=== PATIENT | female | born 1970 | race Caucasian/White ===

== ENCOUNTER → 2021-05-15 10:17 | Outpatient (CLI) | payer OTHER, SELFPAY ==
[2021-05-15 19:01] LABS: Alanine Aminotransferase 17 IU/L (<35); Albumin 4.3 g/dL (3.5-5.0); Albumin Globulin Ratio 1.6 (1.0-2.8); Alkaline Phosphatase 45 U/L (38-126); Aspartate Aminotransferase 27 IU/L (14-36); BUN Creatinine Ratio 12.6 (6-22); Bilirubin Total 0.5 mg/dL (0.2-1.3); Blood Urea Nitrogen 13 mg/dL (7-17); Calcium 9.7 mg/dL (8.4-10.2); Carbon Dioxide 28 mmol/L (22-32); Chloride 104 mmol/L (98-107); Cholesterol 203 mg/dL (140-199); Estimated Glomerular Filt Rate 56.7 mL/min (>60); Globulin 2.7 g/dL (1.7-4.1); Glucose 97 mg/dL (70-100); HDL Cholesterol 86 mg/dL (40-60); HEMOLYSIS 17 (0-50); LDL Cholesterol Calculated 107 mg/dL (<100); Potassium 4.4 mmol/L (3.4-5.1); Sodium 137 mmol/L (137-145); Triglycerides 49 mg/dL (35-150)
[2021-05-15 19:13] LABS: Add Manual Diff / Slide Review NO; Basophils Absolute Auto 0 /uL (0-100); Basophils Percent Auto 0.8 % (0-2); Eosinophils Absolute Auto 100 /uL (0-450); Eosinophils Percent Auto 3.4 % (2-4); Hematocrit 40.9 % (36-46); Hemoglobin 13.8 g/dL (12.0-16.0); Lymphocytes Absolute Auto 900 /uL (1100-4500); Mean Corpuscular HGB Conc 33.7 % (30-36); Mean Corpuscular Hemoglobin 28.8 PG (26-34); Mean Corpuscular Volume 85.3 fL (80-100); Monocytes Absolute Auto 400 /uL (0-900); Monocytes Percent Auto 12.4 % (3-14); Neutrophils Absolute Auto 1900 /uL (1500-7000); Neutrophils Percent Auto 56.4 % (50-75); Platelet Count 178 X10^3/uL (150-400); Red Blood Cell Count 4.79 X10^6/uL (4.0-5.2); Red Cell Distribution Width 13.3 % (11.6-14.8); White Blood Cell Count 3.3 X10^3/uL (4.5-11.0)
[2021-05-15 19:34] LABS: TSH w/ Reflex to FT4 1.42 uIU/mL (0.47-4.68)
== END ==
PROVIDERS: PCP Physician Assistant; Referring Provider Physician Assistant; Visit Provider Physician Assistant
DX: R53.83 Other fatigue (principal); Z13.220 Encounter for screening for lipoid disorders; Z83.49 Family history of other endocrine, nutritional and metabolic diseases
CPT/HCPCS: 80053; 80061; 84443; 85025

== ENCOUNTER → 2021-07-01 11:27 | Outpatient (CLI) | payer OTHER, SELFPAY ==
[2021-07-02 20:27] LABS: Add Manual Diff / Slide Review NO; Basophils Absolute Auto 0 /uL (0-100); Basophils Percent Auto 1.1 % (0-2); Eosinophils Absolute Auto 100 /uL (0-450); Eosinophils Percent Auto 1.7 % (2-4); Hemoglobin 13.7 g/dL (12.0-16.0); Lymphocytes Absolute Auto 1100 /uL (1100-4500); Lymphocytes Percent Auto 35.5 % (25-40); Mean Corpuscular HGB Conc 33.3 % (30-36); Mean Corpuscular Hemoglobin 28.6 PG (26-34); Mean Corpuscular Volume 85.8 fL (80-100); Monocytes Absolute Auto 300 /uL (0-900); Monocytes Percent Auto 11.1 % (3-14); Neutrophils Absolute Auto 1600 /uL (1500-7000); Neutrophils Percent Auto 50.6 % (50-75); Platelet Count 165 X10^3/uL (150-400); Red Blood Cell Count 4.78 X10^6/uL (4.0-5.2); Red Cell Distribution Width 14.3 % (11.6-14.8); White Blood Cell Count 3.1 X10^3/uL (4.5-11.0)
== END ==
PROVIDERS: PCP Physician Assistant; Referring Provider Physician Assistant; Visit Provider Physician Assistant
DX: D72.9 Disorder of white blood cells, unspecified (principal)
CPT/HCPCS: 85025

== ENCOUNTER → 2021-07-30 08:26 | Outpatient (CLI) | payer OTHER, SELFPAY ==
[2021-07-30 23:08] LABS: COVID19 - ORCAS (NP or Nasal) Negative (Negative)
== END ==
PROVIDERS: PCP Physician Assistant; Visit Provider Physician Assistant
DX: Z01.812 Encounter for preprocedural laboratory examination (principal); Z20.822 Contact with and (suspected) exposure to COVID-19
CPT/HCPCS: U0003

== ENCOUNTER 2021-08-01 08:57 | Day surgery (SDC) | payer OTHER, SELFPAY ==
--- NOTE | 2021-08-01 | PATH_ITS ---
[facility] Accession Number: [id number] . 01 Material submitted: . colon - TRANSVERSE COLON POLYP . 02 Diagnosis: Transverse Colon Polyp, Biopsy: Tubular adenoma. V 08/05/2021 1141 Local . 02 Electronically signed: . Subhash Chambers MD, PhD, Pathologist NPI- [id number] . 01 Gross description: . TRANSVERSE COLON POLYP: Received in formalin are 2 fragment(s) of ndiaye, soft tissue measuring 0.5 x 0.4 x 0.1 cm to 0.4 x 0.4 x 0.3 cm submitted entirely in 1 cassette(s) /[facility] 08/03/2021 1553 Local . 02 Pathologist provided ICD-10: D12.3 . 02 CPT . 748432 Specimen Comment: A courtesy copy of this report has been sent to [phone] Performed at: 01 [facility] Cytology [address] [facility], [place], [place] [id number] MD Delonte Javier MD Phone: [phone] Performed at: 02 [facility] [address] [place], [place] [id number] MD Rebecca Olivares MD Phone: [phone]
[2021-08-01 09:39] VITALS: BMI 23.1
[2021-08-01 09:48] VITALS: BP 109/74; PULSE 61; RESP 16; TEMP 36.9; O2SAT 100
[2021-08-01] MEDS: LACTATED RINGERS 1,000 ML 42 ML IV (09:56)
--- NOTE | 2021-08-01 11:11 | P.HP_ITS ---
History of Present Illness History of Present Illness Date Patient Seen: 08/01/21 Time Patient Seen: 11:11 Chief complaint: SCREENING COLONOSCOPY Narrative: 51-year-old woman here for colon cancer screening. She does have family history of colon cancer in her father who was diagnosed around age 68. She is otherwise healthy. Patient History Medical History (Updated 08/01/21 @ 11:12 by Bernabe Liu MD) Acne Chicken pox Colon cancer screening Family history of colon cancer in father Heavy menstrual period (~2020) Mitral valve prolapse Mood swings Claudette-menopause Surgical History (Updated 05/20/21 @ 21:17 by Lucina Wilder) Anesthesia [place] teeth removed Family & Social History Family History (Updated 05/20/21 @ 21:24 by Lucina Wilder) Father Cancer Mother Sjogren's disease Lupus Grandfather Alzheimer's disease Grandmother Cancer Grandfather Cancer Grandmother Mental health problem Social History: household members spouse Tobacco & Substance use: Smoking Status Never smoker alcohol intake current alcohol intake frequency other Substance Use Type does not use Meds Home Medications and Allergies Home Medications Medication Instructions Recorded Confirmed Type No Known Home Medications 05/06/21 05/06/21 History Allergies Allergy/AdvReac Type Severity Reaction Status Date / Time Penicillins Allergy Unknown Verified 08/01/21 09:37 Exam Vital Signs (past 8 hours): - 08/01/21 09:48 Temperature 98.4 F Pulse Rate 61 Respiratory Rate 16 Blood Pressure 109/74 Pulse Oximetry 100 Oxygen Delivery Method Room Air Const General: healthy appearing Resp Effort & Inspection: normal respiratory effort GI Palpation: soft Assessment & Plan Assessment and plan (1) Colon cancer screening: Status: Acute Plan We discussed the risks and benefits of colonoscopy for colon cancer screening. She would like to proceed. COVID-19 COVID-19 status: Negative Result date/Date tested (Pos, Neg/Pending): 07/31/21 Time Spent With Patient Critical Care time: I spent a total of [] minutes of critical care time on this patient's care today; this time is exclusive of procedural time.
[2021-08-01] MEDS: fentaNYL 250 MCG/5 ML INJ IV (11:40)
--- NOTE | 2021-08-01 11:41 | PM.OP.COLON ---
Operative Date/Time/Diagnoses Date of procedure: 08/01/21 Time of procedure: 11:42 Pre-op diagnosis: Colon cancer screening Procedure & Clinicians Surgeon: Bernabe Liu Procedure Notes Procedure in detail: Procedure: The patient was brought to the endoscopy suite, placed in left lateral decubitus position. The patient was connected to monitoring devices. A time-out was performed. Sedation was administered. Once the patient was adequately sedated, a digital rectal exam was performed and was normal. The scope was then inserted and advanced to the cecum where the appendiceal orifice was identified and photographed. The scope was then slowly withdrawn over greater than 6 minutes. Mucosa was thoroughly inspected. There was a 5 mm polyp in the transverse colon removed with cold snare. Rest of the colon was normal. The scope was retroflexed in the rectum. No abnormalities were noted. The scope was straightened and removed. The patient was awakened and brought to recovery. Versed: 7 mg Fentanyl: 150 mcg EBL: 2 mL Findings: 1 transverse colon polyp of roughly 5 mm Scope withdrawal time: 15 Sedation minutes: 24 Post-procedure Recommendations: Will call with biopsy results
[2021-08-01 11:45] VITALS: BP 104/50; PULSE 61; RESP 15; TEMP 36.3; O2SAT 100
[2021-08-01] MEDS: MIDAZOLAM 5 MG/5 ML VIAL IV (11:46)
[2021-08-01 11:50] VITALS: BP 92/53; PULSE 71; RESP 15; O2SAT 100
[2021-08-01 11:55] VITALS: BP 98/55; PULSE 70; RESP 15; O2SAT 100
[2021-08-01 12:00] VITALS: BP 96/56; PULSE 64; RESP 16; O2SAT 99
[2021-08-01 12:05] VITALS: BP 99/44; PULSE 57; RESP 14; O2SAT 100
== END 2021-08-01 13:36 | disposition home or self-care (01) ==
PROVIDERS: PCP Physician Assistant; Referring Provider Surgery; Visit Provider Surgery
PROC: 0DJD8ZZ Inspection of Lower Intestinal Tract, Via Natural or Artificial Opening Endoscopic (ICD-10-PCS; CPT 45378; principal; 2021-08-01 10:45)
DX: Z12.11 Encounter for screening for malignant neoplasm of colon (principal); D12.3 Benign neoplasm of transverse colon
CPT/HCPCS: 45385; 99152; J2250; J3010

== ENCOUNTER → 2021-09-02 12:02 | Outpatient (CLI) | payer OTHER, SELFPAY ==
--- NOTE | 2021-09-02 12:04 | DI.US.S_ITS ---
PROCEDURE: US PELVIC COMPLETE INDICATIONS: MONITOR FIBROIDS TECHNIQUE: Real-time scanning was performed of the pelvic organs, with image documentation. Additional endovaginal scanning was necessary due to incomplete visualization of the adnexal and endometrial structures by transabdominal scanning. COMPARISON: None. FINDINGS: Uterus: Uterus is anteverted and normal in size at 8.2 x 6.1 x 4.9 cm. The myometrium is heterogeneous. The endometrium thickness is not well seen due to fibroids. Multiple ovoid lesions are seen in the uterus, most consistent with fibroids. Fibroid 1: Midline, submucosal; measuring 1.2 x 1 x 1.3 cm. Fibroid 2: Left, anterior, intramural; measuring 2.4 x 2 x 2.2 cm Fibroid 3: Left, posterior, intramural; measuring 3.2 x 1.6 x 2 cm. Ovaries: The right ovary measures 2.2 x 1.1 x 1.1 cm. The left ovary measures 1.8 x 1.5 x 1.3 cm. The ovaries have a normal sonographic appearance. Less than 12 follicles can be seen in each ovary. No adnexal masses are seen. Other: No pathologic free abdominal or pelvic fluid. IMPRESSION: Myomatous change of the uterus as detailed above. We strive to produce accurate, complete, and clear reports of imaging services. To assist us in improving patient care, this report was composed using standard report templates and voice recognition software. Therefore, it may contain abnormal punctuation, insertions and/or omissions. Occasional wrong-word or sound-alike substitutions may occur. Though we review the report and make efforts to correct it, we do recommend that the report be read carefully in proper context to recognize any text inaccuracies. Dictated by: Skyler Aguero M.D. on 09/02/2021 at 13:18 Approved by: Skyler Aguero M.D. on 09/02/2021 at 13:21
== END ==
PROVIDERS: PCP Physician Assistant; Referring Provider Physician Assistant; Visit Provider Physician Assistant
DX: D25.1 Intramural leiomyoma of uterus (principal); D25.0 Submucous leiomyoma of uterus
CPT/HCPCS: 76830; 76856

== ENCOUNTER → 2021-09-18 12:56 | Outpatient (CLI) | payer OTHER, SELFPAY ==
[2021-09-18 20:05] LABS: Alanine Aminotransferase 15 IU/L (<35); Albumin 4.1 g/dL (3.5-5.0); Albumin Globulin Ratio 1.7 (1.0-2.8); Alkaline Phosphatase 41 U/L (38-126); Aspartate Aminotransferase 23 IU/L (14-36); BUN Creatinine Ratio 15.5 (6-22); Bilirubin Total 0.5 mg/dL (0.2-1.3); Blood Urea Nitrogen 15 mg/dL (7-17); Calcium 9.1 mg/dL (8.4-10.2); Carbon Dioxide 25 mmol/L (22-32); Chloride 105 mmol/L (98-107); Estimated Glomerular Filt Rate > 60 mL/min (>60); Globulin 2.4 g/dL (1.7-4.1); Glucose 85 mg/dL (70-100); HEMOLYSIS < 15 (0-50); Potassium 4.2 mmol/L (3.4-5.1); Sodium 137 mmol/L (137-145); Total Protein 6.5 g/dL (6.3-8.2)
[2021-09-18 20:11] LABS: Hematocrit 40.7 % (36-46); Hemoglobin 13.7 g/dL (12.0-16.0); Mean Corpuscular HGB Conc 33.6 % (30-36); Mean Corpuscular Volume 86.4 fL (80-100); Platelet Count 167 X10^3/uL (150-400); Red Blood Cell Count 4.71 X10^6/uL (4.0-5.2); Red Cell Distribution Width 14.1 % (11.6-14.8); White Blood Cell Count 4.2 X10^3/uL (4.5-11.0)
[2021-09-18 20:22] LABS: Neutrophils Absolute Manual 2478 /uL (3000-5900); Total Cells Counted 100
[2021-09-18 20:25] LABS: RBC Morphology Normal Morphology
== END ==
PROVIDERS: PCP Physician Assistant; Visit Provider Physician Assistant
DX: R53.83 Other fatigue (principal); D72.9 Disorder of white blood cells, unspecified
CPT/HCPCS: 80053; 85025